=== PATIENT | female | born 1945 | race Caucasian/White ===

== ENCOUNTER 2024-06-04 14:45 | Inpatient (IN) | payer MEDICARE, OTHER ==
[~2024-06-04] VITALS: Ht 165.1 cm; Wt 64.5 kg
[2024-06-04] MEDS ORDERED: VITA100093 PO (16:03)
[2024-06-04] MEDS ORDERED: ASPI-615 PO (16:03)
[2024-06-04] MEDS ORDERED: LOSA100T46 PO (16:03)
[2024-06-04] MEDS ORDERED: HYDR-3490 PO (16:03)
[2024-06-04] MEDS: LOSARTAN 50MG TABLET PO ONE (16:58)
[2024-06-04] MEDS: ACETAMINOPHEN 325 MG TAB PO ONE (16:59)
[2024-06-04 17:49] LABS: BASO % 0.2 % (0.0-1.0); HEMATOCRIT 49.3 % (36.0-47.0); HEMOGLOBIN 16.4 g/dl (12.0-15.5); LYMPH # 0.8 10^3/uL (1.5-5.0); LYMPH % 9.6 % (24.0-44.0); MEAN CORPUSCULAR HEMOGLOBIN 29.9 pg (27.0-33.0); MEAN CORPUSCULAR HGB CONC 33.3 g/dl (32.0-36.5); MEAN CORPUSCULAR VOLUME 89.8 fl (80.0-96.0); MONO # 0.8 10^3/uL (0.0-0.8); MONO % 9.6 % (2.0-8.0); NEUTROPHILS % 80.3 % (36.0-66.0); PLATELET COUNT, AUTOMATED 305 10^3/uL (150-450); RED BLOOD COUNT 5.49 10^6/uL (4.00-5.40); WHITE BLOOD COUNT 8.7 10^3/uL (4.0-10.0)
[2024-06-04 18:21] LABS: BLOOD UREA NITROGEN 20 MG/DL (9-23); CALCIUM LEVEL 9.4 MG/DL (8.3-10.6); CARBON DIOXIDE LEVEL 28 MMOL/L (20-31); CHLORIDE LEVEL 99 MMOL/L (98-107); CREATININE FOR GFR 0.59 MG/DL (0.55-1.30); GLOMERULAR FILTRATION RATE > 60.0 (>39); GLUCOSE, FASTING 142 MG/DL (74-106); POTASSIUM SERUM 3.5 MMOL/L (3.5-5.1); SODIUM LEVEL 141 MMOL/L (136-145)
[2024-06-04] MEDS: MORPHINE 2 MG/ML 1ML VIAL IV ONE (19:05)
[2024-06-04] MEDS: methylPREDNISolone 125MG 2ML VIAL IV ONE (20:59)
[2024-06-04] MEDS: diazePAM 10MG/2ML SYRINGE IV ONE (20:59)
[2024-06-04 21:24] LABS: KETONE, URINE AUTO RFX TRACE mg/dL (NEGATIVE); LEUKOCYTE ESTERASE UR AUTO RFX NEGATIVE (NEGATIVE); MUCUS, URINE RFX SMALL (NEGATIVE); NITRITE, URINE AUTO RFX NEGATIVE (NEGATIVE); RBC, URINE AUTO RFX 2 /HPF (0-3); SQUAM EPITHELIAL CELL UR AURFX 6 /HPF (0-6); WBC, URINE AUTO RFX 8 /HPF (0-3)
[2024-06-04] MEDS ORDERED: METO1TAB7 PO (21:40)
[2024-06-04] MEDS ORDERED: ACET-897 PO (21:43)
[2024-06-04] MEDS ORDERED: THERTAB52 PO (21:43)
[2024-06-04] MEDS ORDERED: HOME MED LIST COMPLETE! XX SCH (21:45)
[2024-06-04] MEDS ORDERED: traMADol 50 MG TAB PO PRN (23:55)
[2024-06-04] MEDS ORDERED: IBUPROFEN 600MG TAB PO PRN (23:55)
[2024-06-05] MEDS: METOPROLOL SUCC (TopROL XL) 50MG **XL** TAB PO SCH (06:50)
[2024-06-05] MEDS: ENOXAPARIN 40MG/0.4ML SYRINGE (J1650 PER 10MG) SC SCH (09:13)
[2024-06-05 10:16] LABS: URIC ACID 4.3 MG/DL (3.1-7.8)
[2024-06-05 11:51] LABS: SOURCE, BODY FLUID RT KNEE; SYNOVIAL FLUID COLOR YELLOW (COLORLESS)
[2024-06-05 11:56] LABS: CRYSTALS, BODY FLUID NONE SEEN (NONE SEEN); SOURCE, BODY FLUID CRYSTALS RT KNEE
[2024-06-05 15:30] VITALS: BP 131/86; TEMP 97.5; O2SAT 95
[2024-06-05 20:00] VITALS: BP 112/77; TEMP 97.9; O2SAT 94
[2024-06-06 04:00] VITALS: BP 138/68; TEMP 96.6; O2SAT 93
[2024-06-06 12:00] VITALS: BP 100/66; TEMP 97.7; O2SAT 96
[2024-06-06 19:42] VITALS: BP 112/69; TEMP 97.5; O2SAT 94
[2024-06-07 04:16] VITALS: BP 150/84; TEMP 97.3; O2SAT 96
[2024-06-07] MEDS: ONDANSETRON 4MG 2ML VIAL IV ONE (06:00)
[2024-06-07 07:16] LABS: HEMATOCRIT 44.7 % (36.0-47.0); HEMOGLOBIN 14.7 g/dl (12.0-15.5); MEAN CORPUSCULAR HEMOGLOBIN 29.5 pg (27.0-33.0); MEAN CORPUSCULAR HGB CONC 32.9 g/dl (32.0-36.5); MEAN CORPUSCULAR VOLUME 89.8 fl (80.0-96.0); PLATELET COUNT, AUTOMATED 279 10^3/uL (150-450); RED BLOOD COUNT 4.98 10^6/uL (4.00-5.40); WHITE BLOOD COUNT 8.7 10^3/uL (4.0-10.0)
[2024-06-07 07:41] LABS: C REACTIVE PROTEIN QUANTITATIV 4.19 MG/DL (<1.0); RHEUMATOID FACTOR QUANT 6.9 IU/ML (<14)
[2024-06-07 08:08] LABS: BLOOD UREA NITROGEN 66 MG/DL (9-23); CARBON DIOXIDE LEVEL 31 MMOL/L (20-31); CHLORIDE LEVEL 103 MMOL/L (98-107); CREATININE FOR GFR 1.25 MG/DL (0.55-1.30); FREE T4 1.15 NG/DL (0.89-1.76); GLOMERULAR FILTRATION RATE 44.1 (>39); GLUCOSE, FASTING 153 MG/DL (74-106); POTASSIUM SERUM 3.6 MMOL/L (3.5-5.1); SODIUM LEVEL 140 MMOL/L (136-145)
[2024-06-07 12:00] VITALS: BP 120/79; TEMP 97.3; O2SAT 96
[2024-06-07 20:03] VITALS: BP 120/59; TEMP 97.5; O2SAT 96
[2024-06-07] MEDS: LR 1,000 ML IV SCH (23:34)
[2024-06-08 04:01] VITALS: BP 146/76; TEMP 97.5; O2SAT 97
[2024-06-08 06:39] LABS: HEMATOCRIT 38.8 % (36.0-47.0); MEAN CORPUSCULAR HEMOGLOBIN 30.3 pg (27.0-33.0); MEAN CORPUSCULAR HGB CONC 33.5 g/dl (32.0-36.5); MEAN CORPUSCULAR VOLUME 90.4 fl (80.0-96.0); PLATELET COUNT, AUTOMATED 234 10^3/uL (150-450); RED BLOOD COUNT 4.29 10^6/uL (4.00-5.40); WHITE BLOOD COUNT 4.3 10^3/uL (4.0-10.0)
[2024-06-08 07:06] LABS: BLOOD UREA NITROGEN 48 MG/DL (9-23); CALCIUM LEVEL 8.5 MG/DL (8.3-10.6); CARBON DIOXIDE LEVEL 30 MMOL/L (20-31); CHLORIDE LEVEL 103 MMOL/L (98-107); CREATININE FOR GFR 0.93 MG/DL (0.55-1.30); GLOMERULAR FILTRATION RATE > 60.0 (>39); GLUCOSE, FASTING 132 MG/DL (74-106); POTASSIUM SERUM 3.3 MMOL/L (3.5-5.1); SODIUM LEVEL 141 MMOL/L (136-145)
[2024-06-08 08:19] LABS: MAGNESIUM LEVEL 1.8 MG/DL (1.8-2.4)
[2024-06-08] MEDS: POTASSIUM CHLORIDE 10MEQ SR TABLET PO ONE (08:50)
[2024-06-08 12:20] VITALS: BP 146/78; TEMP 97.5; O2SAT 92
[2024-06-08 19:55] VITALS: BP 152/83; TEMP 97.5; O2SAT 96
[2024-06-09 04:15] VITALS: BP 154/83; TEMP 97.2; O2SAT 95
[2024-06-09 06:47] LABS: HEMATOCRIT 40.4 % (36.0-47.0); MEAN CORPUSCULAR HGB CONC 32.2 g/dl (32.0-36.5); MEAN CORPUSCULAR VOLUME 93.3 fl (80.0-96.0); PLATELET COUNT, AUTOMATED 221 10^3/uL (150-450); RED BLOOD COUNT 4.33 10^6/uL (4.00-5.40); WHITE BLOOD COUNT 4.7 10^3/uL (4.0-10.0)
[2024-06-09 07:00] LABS: HEMOGLOBIN A1c 6.4 % (4.0-6.0)
[2024-06-09 07:09] LABS: BLOOD UREA NITROGEN 27 MG/DL (9-23); CARBON DIOXIDE LEVEL 30 MMOL/L (20-31); CHLORIDE LEVEL 105 MMOL/L (98-107); CHOLESTEROL LEVEL 132 MG/DL (<200); CHOLESTEROL RISK RATIO 5.32 (<5); CREATININE FOR GFR 0.85 MG/DL (0.55-1.30); GLOMERULAR FILTRATION RATE > 60.0 (>39); GLUCOSE, FASTING 116 MG/DL (74-106); HDL CHOLESTEROL 24.8 MG/DL (>40); LDL CHOLESTEROL 44.8 MG/DL (<100); NON-HDL-C 107.2 MG/DL; POTASSIUM SERUM 3.5 MMOL/L (3.5-5.1); SODIUM LEVEL 142 MMOL/L (136-145); TRIGLYCERIDES LEVEL 312 MG/DL (<150)
[2024-06-09] MEDS: ATORVASTATIN 20 MG TAB PO SCH (08:41)
[2024-06-09] MEDS: CLOPIDOGREL 75 MG TAB PO SCH (08:41)
[2024-06-09] MEDS: ASPIRIN 81MG CHEW TABLET PEG SCH (08:41)
[2024-06-09 08:43] VITALS: BP 121/75
[2024-06-09 12:30] VITALS: BP 128/81; TEMP 97.5; O2SAT 95
[2024-06-09 15:13] VITALS: BP 151/92; TEMP 97.3; O2SAT 96
[2024-06-09 20:03] VITALS: BP 152/88; TEMP 97.5; O2SAT 95
[2024-06-10 03:24] VITALS: BP 148/83; TEMP 97.7; O2SAT 94
[2024-06-10 05:15] LABS: HEMATOCRIT 40.6 % (36.0-47.0); HEMOGLOBIN 13.1 g/dl (12.0-15.5); MEAN CORPUSCULAR HEMOGLOBIN 29.8 pg (27.0-33.0); MEAN CORPUSCULAR HGB CONC 32.3 g/dl (32.0-36.5); MEAN CORPUSCULAR VOLUME 92.5 fl (80.0-96.0); PLATELET COUNT, AUTOMATED 223 10^3/uL (150-450); RED BLOOD COUNT 4.39 10^6/uL (4.00-5.40)
[2024-06-10 05:45] LABS: BLOOD UREA NITROGEN 20 MG/DL (9-23); CALCIUM LEVEL 7.9 MG/DL (8.3-10.6); CARBON DIOXIDE LEVEL 26 MMOL/L (20-31); CHLORIDE LEVEL 108 MMOL/L (98-107); CREATININE FOR GFR 0.71 MG/DL (0.55-1.30); GLOMERULAR FILTRATION RATE > 60.0 (>39); GLUCOSE, FASTING 143 MG/DL (74-106); POTASSIUM SERUM 3.2 MMOL/L (3.5-5.1); SODIUM LEVEL 143 MMOL/L (136-145)
[2024-06-10 19:34] VITALS: BP 159/80; TEMP 97.7; O2SAT 96
[2024-06-11 00:07] LABS: CYCLIC CITRULLINATED PEPTIDE < 16 UNITS (<20)
[2024-06-11 05:16] VITALS: BP 156/80; TEMP 97.7; O2SAT 94
[2024-06-11 05:24] LABS: HEMATOCRIT 38.9 % (36.0-47.0); HEMOGLOBIN 12.8 g/dl (12.0-15.5); MEAN CORPUSCULAR HEMOGLOBIN 29.4 pg (27.0-33.0); MEAN CORPUSCULAR HGB CONC 32.9 g/dl (32.0-36.5); MEAN CORPUSCULAR VOLUME 89.2 fl (80.0-96.0); PLATELET COUNT, AUTOMATED 211 10^3/uL (150-450); RED BLOOD COUNT 4.36 10^6/uL (4.00-5.40); WHITE BLOOD COUNT 5.4 10^3/uL (4.0-10.0)
[2024-06-11 05:49] LABS: BLOOD UREA NITROGEN 15 MG/DL (9-23); CALCIUM LEVEL 7.9 MG/DL (8.3-10.6); CARBON DIOXIDE LEVEL 26 MMOL/L (20-31); CHLORIDE LEVEL 109 MMOL/L (98-107); GLOMERULAR FILTRATION RATE > 60.0 (>39); GLUCOSE, FASTING 120 MG/DL (74-106); POTASSIUM SERUM 3.2 MMOL/L (3.5-5.1); SODIUM LEVEL 144 MMOL/L (136-145)
[2024-06-11 12:00] VITALS: BP 141/84; TEMP 97.7; O2SAT 97
[2024-06-11] MEDS: POTASSIUM CHLORIDE 10% LIQ 20MEQ/15ML UDC PO ONE (12:20)
[2024-06-11] MEDS: KCL 10MEQ/100ML SWI (KRUN) 10 MEQ in IV 1 EA IV SCH (12:21)
[2024-06-11 15:12] LABS: LYME TOTAL ANTIBODY CIA 1.68 Index (<=0.90)
[2024-06-11 18:13] LABS: LYME AB IGG BY CIA 3.73 Index (<=0.90); LYME AB IGM BY CIA <= 0.90 Index (<=0.90)
[2024-06-11 19:54] VITALS: BP 136/78; TEMP 97.5; O2SAT 95
[2024-06-12 04:20] VITALS: BP 142/74; TEMP 97.9; O2SAT 94
[2024-06-12 06:03] LABS: HEMATOCRIT 38.3 % (36.0-47.0); HEMOGLOBIN 12.6 g/dl (12.0-15.5); MEAN CORPUSCULAR HEMOGLOBIN 29.9 pg (27.0-33.0); MEAN CORPUSCULAR HGB CONC 32.9 g/dl (32.0-36.5); PLATELET COUNT, AUTOMATED 205 10^3/uL (150-450); RED BLOOD COUNT 4.21 10^6/uL (4.00-5.40); WHITE BLOOD COUNT 5.3 10^3/uL (4.0-10.0)
[2024-06-12 06:25] LABS: BLOOD UREA NITROGEN 15 MG/DL (9-23); CALCIUM LEVEL 8.1 MG/DL (8.3-10.6); CARBON DIOXIDE LEVEL 28 MMOL/L (20-31); CHLORIDE LEVEL 110 MMOL/L (98-107); CREATININE FOR GFR 0.74 MG/DL (0.55-1.30); GLOMERULAR FILTRATION RATE > 60.0 (>39); GLUCOSE, FASTING 120 MG/DL (74-106); POTASSIUM SERUM 3.9 MMOL/L (3.5-5.1); SODIUM LEVEL 146 MMOL/L (136-145)
[2024-06-12] MEDS ORDERED: ASPI-427 PO (08:22)
[2024-06-12] MEDS ORDERED: CLOP75TA2 PO (08:22)
[2024-06-12] MEDS ORDERED: ASPI-1 PO (08:25)
[2024-06-12] MEDS ORDERED: ASPI-615 PO (08:26)
[2024-06-12] MEDS ORDERED: LIPI20TA PO (08:35)
[2024-06-12 08:39] VITALS: BP 147/76
[2024-06-12 12:00] VITALS: BP 140/73; TEMP 97.7; O2SAT 96
== END 2024-06-12 15:22 | DRG 65 ==
LOC: EDBD 14:45 → M ED 14:45 → M ED INP 14:46 → M MS5PR 06-05 15:25 → OBSVTOIN 06-07 22:38 → M MSPAV 06-09 15:05
PROVIDERS: ADMIT Student in an Organized Health Care Education/Training Program; ATTEND Student in an Organized Health Care Education/Training Program
PROC: 0S9C3ZZ Drainage of Right Knee Joint, Percutaneous Approach (ICD-10-PCS; principal; 2024-06-07)
DX: I63.40 Cerebral infarction due to embolism of unspecified cerebral artery (principal); N17.9 Acute kidney failure, unspecified; I10 Essential (primary) hypertension; F01.50 Vascular dementia, unspecified severity, without behavioral disturbance, psychotic disturbance, mood disturbance, and anxiety; M25.461 Effusion, right knee; R26.81 Unsteadiness on feet; R32 Unspecified urinary incontinence; Z88.0 Allergy status to penicillin; Z79.899 Other long term (current) drug therapy; Z79.82 Long term (current) use of aspirin; I36.0 Nonrheumatic tricuspid (valve) stenosis